=== PATIENT | female | born 1955 | race Caucasian/White ===

== ENCOUNTER 2020-07-14 09:27 | Outpatient (REF) | payer MEDICARE, SELFPAY ==
[2020-07-14 12:01] LABS: Alanine Aminotransferase 14 U/L (0-31); Aspartate Amino Transferase 16 U/L (5-31); Cholesterol 221 mg/dL; HDL Cholesterol 59 mg/dL; LDL Cholesterol Calculated 145 mg/dl; Triglycerides 85 mg/dL
== END 2020-07-14 09:28 | disposition home or self-care (01) ==
LOC: HO.HMGCLDS 09:27
PROVIDERS: PCP Internal Medicine; Visit Provider Internal Medicine
DX: E78.5 Hyperlipidemia, unspecified (principal); E55.9 Vitamin D deficiency, unspecified
CPT/HCPCS: 36415; 80061; 82306; 84450; 84460

== ENCOUNTER 2021-04-15 07:51 | Outpatient (REF) | payer MEDICARE, SELFPAY ==
[2021-04-17 14:17] LABS: Lyme Abs Screen <0.90 index
[2021-04-20 05:11] LABS: A. Phagocytophilum Ab IgG <1:64 (<1:64); A. Phagocytophilum Ab IgM <1:20 (<1:20); E. Chaffeensis Ab IgG <1:64 (<1:64); E. Chaffeensis Ab IgM <1:20 (<1:20)
== END 2021-04-15 07:52 | disposition home or self-care (01) ==
LOC: HO.HMGCLDS 07:51
PROVIDERS: PCP Internal Medicine; Visit Provider Internal Medicine
DX: R21 Rash and other nonspecific skin eruption (principal); R53.81 Other malaise; R53.83 Other fatigue
CPT/HCPCS: 36415; 86617; 86618; 86666

== ENCOUNTER 2021-05-29 08:35 | Outpatient (REF) | payer MEDICARE, SELFPAY ==
[2021-05-29 12:17] LABS: Alanine Aminotransferase 15 U/L (0-31); Anion Gap 13 (12-20); Aspartate Amino Transferase 16 U/L (5-31); Blood Urea Nitrogen 14 mg/dL (9-16); Calcium 9.4 mg/dL (8.4-10.2); Carbon Dioxide 28 mmol/L (22-29); Chloride 107 mmol/L (96-108); Cholesterol 247 mg/dL; Estimated Glomerular Filt Rate > 60; Glucose Fasting 91 mg/dL (60-99); HDL Cholesterol 54 mg/dL; LDL Cholesterol Calculated 166 mg/dl; Potassium 4.8 mmol/L (3.3-5.1); Sodium 143 mmol/L (135-145); Triglycerides 139 mg/dL
[2021-05-29 12:25] LABS: Vitamin D 25-OH Total 18.3 ng/mL (>30)
== END 2021-05-29 08:36 | disposition home or self-care (01) ==
LOC: HO.HMGCLDS 08:35
PROVIDERS: PCP Internal Medicine; Visit Provider Internal Medicine
DX: I10 Essential (primary) hypertension (principal); E78.5 Hyperlipidemia, unspecified
CPT/HCPCS: 36415; 80048; 80061; 82306; 84450; 84460

== ENCOUNTER 2021-08-25 07:13 | Outpatient (REF) | payer MEDICARE, SELFPAY ==
[2021-08-25 11:57] LABS: Alanine Aminotransferase 12 U/L (0-31); Aspartate Amino Transferase 16 U/L (5-31); Cholesterol 243 mg/dL; HDL Cholesterol 55 mg/dL; LDL Cholesterol Calculated 171 mg/dl; Triglycerides 89 mg/dL
[2021-08-25 12:03] LABS: Vitamin D 25-OH Total 37.8 ng/mL (>30)
== END 2021-08-25 07:14 | disposition home or self-care (01) ==
LOC: HO.HMGCLDS 07:13
PROVIDERS: Visit Provider Internal Medicine
DX: E55.9 Vitamin D deficiency, unspecified (principal); E78.5 Hyperlipidemia, unspecified
CPT/HCPCS: 36415; 80061; 82306; 84450; 84460

== ENCOUNTER 2022-04-03 14:47 | Outpatient (REF) | payer OTHER, MEDICARE, SELFPAY ==
--- NOTE | ~2022-04-03 | XR_ITS ---
EXAMINATION: CERVICAL SPINE. LUMBAR SPINE. CLINICAL INFORMATION: Pain. Pain COMPARISON: None TECHNIQUE: 2 views cervical spine. 2 views lumbar spine. FINDINGS: Cervical spine: Prevertebral soft tissues are normal. There is advanced disc space narrowing C5-C6 and C6-C7 but no alignment abnormality or fracture. There is calcification in the right and left common carotid arteries. 2 views of the lumbar spine show very mild forward subluxation L4 upon L5 but no fracture or destructive process. The SI joints do appear symmetric. XR/XR lumbar spine 2-3V IMPRESSION: Chronic changes observed. No acute abnormalities.
--- NOTE | ~2022-04-03 | XR_ITS ---
EXAMINATION: CERVICAL SPINE. LUMBAR SPINE. CLINICAL INFORMATION: Pain. Pain COMPARISON: None TECHNIQUE: 2 views cervical spine. 2 views lumbar spine. FINDINGS: Cervical spine: Prevertebral soft tissues are normal. There is advanced disc space narrowing C5-C6 and C6-C7 but no alignment abnormality or fracture. There is calcification in the right and left common carotid arteries. 2 views of the lumbar spine show very mild forward subluxation L4 upon L5 but no fracture or destructive process. The SI joints do appear symmetric. XR/XR cervical spine 3V IMPRESSION: Chronic changes observed. No acute abnormalities.
== END 2022-04-03 14:48 | disposition home or self-care (01) ==
LOC: HO.HMGCX 14:47
PROVIDERS: PCP Internal Medicine; Visit Provider Internal Medicine
DX: S13.4XXA Sprain of ligaments of cervical spine, initial encounter (principal); M54.50 Low back pain, unspecified; X58.XXXA Exposure to other specified factors, initial encounter; Y93.9 Activity, unspecified; Y92.9 Unspecified place or not applicable; Y99.9 Unspecified external cause status; Z87.828 Personal history of other (healed) physical injury and trauma
CPT/HCPCS: 72040; 72100

== ENCOUNTER 2022-05-11 08:00 | Outpatient (RCR) | payer OTHER, MEDICARE, SELFPAY ==
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
== END 2022-05-14 12:39 | disposition home or self-care (01) ==
LOC: HO.PTCHIC 08:00
PROVIDERS: PCP Internal Medicine; Visit Provider Internal Medicine
DX: M54.50 Low back pain, unspecified (principal); S13.4XXA Sprain of ligaments of cervical spine, initial encounter; Z87.828 Personal history of other (healed) physical injury and trauma
CPT/HCPCS: 97110; 97140; 97162

== ENCOUNTER 2022-07-16 09:00 | Outpatient (RCR) | payer OTHER, MEDICARE, SELFPAY ==
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
--- NOTE | 2022-07-16 10:01 | MHC.PT.DC ---
[facility] [place] Office [place] Office [place] Office [address] [place] [address] [phone] F: [phone] F: [phone] F: [phone] F: [phone] Physical Therapy Discharge Report Diagnosis: angel of ligaments cervical spine pain R knee Date of Surgery: Date of Evaluation: 05/14/22 Date of Discharge: 07/16/22 Treatments to Date: 14 Cancellations to Date: 0 No Shows to Date: 0 Discharge Status: Achieved Goals Improved Function Independent with HEP Discharge Summary: Pt has met all goals and is I with HEP. We reviewed importance of pacing and continuing to gradually add activity/ resistance to tolerance and not all at once. Pt reports good understanding and feels better overall with occasional aches and pain mostly in B knees lately. Continues to benefit from cues to decrease pace of exercises and move with intention. No further questions at this time. Electronically signed by: Kay Tolbert PT Please sign and return to therapist. Thank you for your referral.
== END 2022-07-16 10:02 | disposition home or self-care (01) ==
LOC: HO.PTCHIC 09:00
PROVIDERS: PCP Internal Medicine; Visit Provider Internal Medicine
DX: M25.561 Pain in right knee (principal); S13.4XXD Sprain of ligaments of cervical spine, subsequent encounter
CPT/HCPCS: 97110; 97140; 97162; 97530

== ENCOUNTER 2022-07-20 08:24 | Outpatient (REF) | payer MEDICARE, SELFPAY ==
[2022-07-20 13:22] LABS: Alanine Aminotransferase 15 U/L (0-31); Aspartate Amino Transferase 16 U/L (5-31); Cholesterol 243 mg/dL; Glucose Fasting 95 mg/dL (60-99); HDL Cholesterol 61 mg/dL; LDL Cholesterol Calculated 167 mg/dl; Triglycerides 75 mg/dL
== END 2022-07-20 08:25 | disposition home or self-care (01) ==
LOC: HO.HMGCLDS 08:24
PROVIDERS: Visit Provider Internal Medicine
DX: E78.5 Hyperlipidemia, unspecified (principal); R73.01 Impaired fasting glucose
CPT/HCPCS: 36415; 80061; 82947; 84450; 84460

== ENCOUNTER 2023-01-11 06:54 | Outpatient (REF) | payer MEDICARE, SELFPAY ==
[2023-01-11 11:52] LABS: Appearance Urine Cloudy; Color Urine Orange; Glucose Urine UA 100 mg/dL (Negative); Leukocyte Esterase Urine Small (1+) (Negative); UMIC TRIGGER UACC YES; Urine Blood Trace (Negative); Urine Ketones Negative (Negative); Urine Protein 30 (1+) mg/dL (Neg-Trace)
[2023-01-11 11:56] LABS: Bacteria Urine 4+ (None Seen); Hyaline Casts Urine 0-2 /LPF (0-2); WBC Urine >50 /HPF (0-5)
[2023-01-11 12:09] LABS: UACC Culture Trigger YES
== END 2023-01-11 06:55 | disposition home or self-care (01) ==
LOC: HO.HMGCLDS 06:54
PROVIDERS: PCP Internal Medicine; Visit Provider Internal Medicine
DX: R30.0 Dysuria (principal)
CPT/HCPCS: 81001; 87086; 87088; 87186

== ENCOUNTER 2023-02-07 07:12 | Outpatient (REF) | payer MEDICARE, SELFPAY ==
[2023-02-07 11:32] LABS: Anion Gap 13 (12-20); Blood Urea Nitrogen 15 mg/dL (9-16); Carbon Dioxide 27 mmol/L (22-29); Chloride 107 mmol/L (96-108); Cholesterol 199 mg/dL (<200); Estimated Glomerular Filt Rate > 60; Glucose Fasting 114 mg/dL (60-99); HDL Cholesterol 57 mg/dL (>40); LDL Cholesterol Calculated 128 mg/dL (<100); Potassium 4.6 mmol/L (3.3-5.1); Sodium 142 mmol/L (135-145); Triglycerides 70 mg/dL (<150)
== END 2023-02-07 07:13 | disposition home or self-care (01) ==
LOC: HO.HMGCLDS 07:12
PROVIDERS: PCP Internal Medicine; Visit Provider Internal Medicine
DX: I10 Essential (primary) hypertension (principal); E78.5 Hyperlipidemia, unspecified
CPT/HCPCS: 36415; 80048; 80061

== ENCOUNTER 2023-02-08 10:45 | Outpatient (AMB) | payer MEDICARE, SELFPAY ==
[2023-02-08 11:25] VITALS: BP 120/78; PULSE 74; O2SAT 97; BMI 28.7
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
== END 2023-02-08 14:09 | disposition home or self-care (01) ==
PROVIDERS: Visit Provider Internal Medicine
DX: Z00.01 Encounter for general adult medical examination with abnormal findings (principal); I10 Essential (primary) hypertension; R73.01 Impaired fasting glucose; Z28.21 Immunization not carried out because of patient refusal; M85.852 Other specified disorders of bone density and structure, left thigh; J30.89 Other allergic rhinitis
CPT/HCPCS: 99397

== ENCOUNTER 2023-08-07 08:33 | Outpatient (AMB) | payer MEDICARE, SELFPAY ==
[2023-08-07 08:40] VITALS: BP 128/70; PULSE 60; TEMP 36.6; O2SAT 98; BMI 28.7
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
== END 2023-08-07 09:25 | disposition home or self-care (01) ==
PROVIDERS: PCP Internal Medicine; Visit Provider Internal Medicine
DX: J06.9 Acute upper respiratory infection, unspecified (principal)
CPT/HCPCS: 99213

== ENCOUNTER 2023-08-30 11:22 | Outpatient (AMB) | payer MEDICARE, SELFPAY ==
[2023-08-30 11:35] VITALS: BP 120/70; PULSE 95; O2SAT 96; BMI 29.3
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
== END 2023-08-30 13:49 | disposition home or self-care (01) ==
PROVIDERS: PCP Internal Medicine; Visit Provider Internal Medicine
DX: J30.89 Other allergic rhinitis (principal)
CPT/HCPCS: 99213

== ENCOUNTER 2023-12-04 09:57 | Outpatient (AMB) | payer MEDICARE, SELFPAY ==
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
[2023-12-04 09:59] VITALS: BP 118/76; PULSE 75; TEMP 36.7; O2SAT 98; BMI 29.3
== END 2023-12-04 12:08 | disposition home or self-care (01) ==
PROVIDERS: PCP Internal Medicine; Visit Provider Physician Assistant
DX: H66.92 Otitis media, unspecified, left ear (principal)
CPT/HCPCS: 99213

== ENCOUNTER 2023-12-12 15:13 | Outpatient (AMB) | payer MEDICARE, SELFPAY ==
[2023-12-12 15:20] VITALS: BP 122/76; PULSE 90; TEMP 37.2; O2SAT 97; BMI 28.9
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
== END 2023-12-12 16:35 | disposition home or self-care (01) ==
PROVIDERS: PCP Internal Medicine; Visit Provider Physician Assistant
DX: H66.003 Acute suppurative otitis media without spontaneous rupture of ear drum, bilateral (principal)
CPT/HCPCS: 99213

== ENCOUNTER 2024-01-07 09:51 | Outpatient (REF) | payer MEDICARE, SELFPAY ==
[2024-01-07 13:25] LABS: Appearance Urine Clear; Color Urine Orange; Glucose Urine UA 250 mg/dL (Negative); Leukocyte Esterase Urine Small (1+) (Negative); PH 6.5 (5.0-9.0); Specific Gravity - Urine 1.015 (1.005-1.025); UMIC TRIGGER UACC YES; Urine Blood Negative (Negative); Urine Ketones Trace mg/dL (Negative)
[2024-01-07 13:38] LABS: Bacteria Urine None Seen (None Seen); Hyaline Casts Urine 0-2 /LPF (0-2); RBC Urine 0-2 /HPF (0-2); Squamous Epithelial Cell Urine 0-2 /HPF (0-2); WBC Urine 0-5 /HPF (0-5)
== END 2024-01-07 09:52 | disposition home or self-care (01) ==
LOC: HO.HMGCLDS 09:51
PROVIDERS: PCP Internal Medicine; Visit Provider Internal Medicine
DX: R30.0 Dysuria (principal)
CPT/HCPCS: 81001

== ENCOUNTER 2024-01-11 09:14 | Outpatient (AMB) | payer MEDICARE, SELFPAY ==
[2024-01-11 09:29] VITALS: BP 138/78; PULSE 76; TEMP 36.9; O2SAT 97; BMI 29.3
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
== END 2024-01-11 10:42 | disposition home or self-care (01) ==
PROVIDERS: PCP Internal Medicine; Visit Provider Nurse Practitioner Family
DX: R35.0 Frequency of micturition (principal); R39.9 Unspecified symptoms and signs involving the genitourinary system; H69.93 Unspecified Eustachian tube disorder, bilateral; R09.89 Other specified symptoms and signs involving the circulatory and respiratory systems; Z13.9 Encounter for screening, unspecified
CPT/HCPCS: 81003; 99214

== ENCOUNTER 2024-01-14 09:03 | Outpatient (REF) | payer MEDICARE, SELFPAY ==
[2024-01-14 10:35] LABS: Estimated Average Glucose 123 mg/dL; Hemoglobin A1c % 5.9 % (<6.0)
== END 2024-01-14 09:04 | disposition home or self-care (01) ==
LOC: HO.HMGCLDS 09:03
PROVIDERS: PCP Internal Medicine; Visit Provider Internal Medicine
DX: R73.01 Impaired fasting glucose (principal); R81 Glycosuria
CPT/HCPCS: 36415; 83036

== ENCOUNTER 2024-03-27 08:02 | Outpatient (REF) | payer MEDICARE, SELFPAY | END 2024-03-27 08:03 | disposition home or self-care (01) | LOC: HO.LAB 08:02 | PROVIDERS: PCP Internal Medicine; Visit Provider Physician Assistant | DX: R39.9 Unspecified symptoms and signs involving the genitourinary system (principal) | CPT/HCPCS: 81003; 87086; 99212 ==

== ENCOUNTER 2024-03-27 08:02 | Outpatient (AMB) | payer MEDICARE, SELFPAY ==
[2024-03-27 08:08] VITALS: BP 130/80; PULSE 62; TEMP 36.5; O2SAT 98
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
== END 2024-03-27 10:06 | disposition home or self-care (01) ==
PROVIDERS: PCP Internal Medicine; Visit Provider Physician Assistant
DX: Z13.9 Encounter for screening, unspecified (principal); R39.9 Unspecified symptoms and signs involving the genitourinary system

== ENCOUNTER 2024-04-16 11:11 | Outpatient (REF) | payer MEDICARE, SELFPAY | END 2024-04-16 11:12 | disposition home or self-care (01) | LOC: HO.LAB 11:11 | PROVIDERS: PCP Internal Medicine; Visit Provider Physician Assistant | DX: N39.0 Urinary tract infection, site not specified (principal) | CPT/HCPCS: 81003; 87086; 99212 ==

== ENCOUNTER 2024-04-16 11:11 | Outpatient (AMB) | payer MEDICARE, SELFPAY ==
[2024-04-16 11:16] VITALS: BP 110/76; PULSE 70; TEMP 36.5; O2SAT 97; BMI 29.0
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
== END 2024-04-16 12:11 | disposition home or self-care (01) ==
PROVIDERS: PCP Internal Medicine; Visit Provider Physician Assistant
DX: N30.00 Acute cystitis without hematuria (principal); Z13.9 Encounter for screening, unspecified

== ENCOUNTER 2024-06-15 09:25 | Outpatient (REF) | payer MEDICARE, SELFPAY ==
--- OUTSIDE RECORDS SUMMARY | 2024-06-15 10:05 | XMS_ITS | Clinical Summary ---
Author Organization [facility] ity Address [address] [place] [address] Care Team Providers Care Wood Cabinet Finisher Name Role Phone Guevara Mei MD Primary Care Provider [phone] Surgical History Surgery Date Site/Laterality Comments EYE SURGERY PROCEDURE: HISTORICAL EYE SURGERY; COMMENT: Detached retina repair HEMORRHOID SURGERY PROCEDURE: [place] INCISION THROMBOSED HEMORRHOID EXTERNAL Medical History Medical History Date Comments Esophageal reflux DX:Esophageal reflux Dyslipidemia DX:Dyslipidemia Osteopenia DX:Osteopenia Osteoarthritis of hand DX:Osteoa rthritis of hand Social History Tobacco Use Types Packs/Day Years Used Date Smoking Tobacco: Never Smokeless Tobacco: Never Alcohol Use Standard Drinks/Week Comments Never 0 (1 standard drink = 0.6 oz pur e alcohol) Comments Unknown Sex and Gender Information Value Date Recorded Sex Assigned at Not on file Legal Sex Female 6:13 AM EST Gender Identity Not on file Sexual Orientation Not on file Obstetrics History Plan of Treatment Health Maintenance Due Date Last Done Comments DTaP,Tdap,and Td Vaccines (1 - Tdap) 1960 Pneumococcal Vaccine: 50+ Ye ars (1 of 1 - PCV) 2003 Zoster Vaccines (1 of 2) 2003 Breast Cancer Screening 02/06/2020 02/05/2018 Colorectal Cancer Screening: Colonoscopy 04/08/2022 Depression Screening 04/08/2022 Falls Risk Assessment 04/08/2022 Hepatitis C Screening 04/08/2022 Osteoporosis Screening (Bone Density Screening) 04/08/2022 Social Influencers of Health Screening 04/08/2022 COVID-19 Vaccine ( - 2023-2 5 season) 2024 Influenza Vaccine (#1) 2024 RSV Immunization Patients 60 + Years Old (1 - 1-dose 75+ series) 2028 HIB Vaccines Aged Out No longer eligi ble based on patient's age to complete this topic HPV Vaccines Aged Out No longer eligi ble based on patient's age to complete this topic Hepatitis A Vaccines Aged Out No long er eligible based on patient's age to complete this topic Hepatitis B Vaccines Aged Out No long er eligible based on patient's age to complete this topic IPV Vaccines Aged Out No longer eligi ble based on patient's age to complete this topic MMR Vaccines Aged Out No longer eligi ble based on patient's age to complete this topic Meningococcal ACWY Vaccine Aged Out N o longer eligible based on patient's age to complete this topic Meningococcal B Vacine Aged Out No lo nger eligible based on patient's age to complete this topic RSV Immunization Patients Un yudith 20 months Aged Out No longer eligible b ased on patient's age to complete this topic Varicella Vaccines Aged Out No longer eligible based on patient's age to complete this topic Procedures Procedure Name Priority Date/Time Associated Diagnosis Comments [facility] SCREENING DIGITAL Routine 02/05/2018 12:50 PM EDT Encounter for screening mammogram for malignant neoplasm of breast from Last 3 Months or Most Recently Relevant to Health Maintenance Results * [facility] SCREENING DIGITAL (02/05/2018 12:50 PM EDT) Anatomical Region Laterality Modality Mammography 02/05/2018 8:18 AM EDT Narrative 02/05/2018 12:50 PM EDT [facility] Diagnostic Imaging Department [address] [place], [place] [id number] Patient: ??LETITIA CHOU ?/Age/Sex: 1955 - 62 - F Unit#: ??[id number] ? Location/Status: ??SPDIMAM/REG CLI ? [facility] Ordering Physician: ??GUEVARA MEI MD Yesy Screening Digital - 02/05/18 - 0853 INDICATION: Screening.Maternal aunt had breast carcinoma age 50. COMPARISON: Prior mammograms dating back to 2007 including outside studies TECHNIQUE: Routine views of both breasts were obtained using full-field direct digital mammography. Bilateral tomosynthesis was performed in MLO projection. Computer Aided Detection was utilized. BREAST PARENCHYMAL COMPOSITION: The breast parenchyma is composed of scattered fibroglandular densities. (Category b density ) . FINDINGS: ??There is no suspicious finding within either breast. Benign- appearing calcifications including vascular calcifications in both breasts. Stable appearance of asymmetry in the posterior third of the medial aspect of the right breast and in the mid third of the left breast. IMPRESSION: 1. No mammographic evidence of malignancy. 2. Annual screening mammography is recommended . OVERALL FINAL ASSESSMENT: BI-RADS Assessment Category 2: Benign. RI CPT II 3342 F A negative mammogram in the presence of clinically suspicious palpable abnormality does not preclude the possibility of malignancy or alter the indications for biopsy. Note: Patient information entered into a reminder system with a target due date for the next mammogram: ??CPT II 7025F G0202/09769 +[id number] Dictating Physician: ??GENET POPE MD Electronically Signed by: ??GENET POPE MD Dic Date/Time: ??02/05/18 1246 Sign date/Time: ??02/05/18 1250 Procedure Note Genet Pope MD - 04/24/2022 [facility] Diagnostic Imaging Department [address] [place] [address] Patient: LETITIA CHOU /Age/Sex: 1955 - 62- F Unit#: [id number] Location/Status: SPDIMAM/REG CLI Mnemonic/Ordering Site: [facility] Ordering Physician: GUEVARA MEI MD Yesy Screening Digital - 02/05/18852 INDICATION: Screening.Maternal aunt had breast carcinoma age 50. COMPARISON: Prior mammograms dating back to 2007 including outsidestudies TECHNIQUE: Routine views of both breasts were obtained using full-fielddirect digital mammography. Bilateral tomosynthesis was performed in MLOprojection. Computer Aided Detection was utilized. BREAST PARENCHYMAL COMPOSITION: The breast parenchyma is composed ofscattered fibroglandular densities. (Category b density ) . FINDINGS: There is no suspicious finding within either breast. Benign- appearing calcifications including vascular calcifications in bothbreasts. Stable appearance of asymmetry in the posterior third of the medial aspectof the right breast and in the mid third of the left breast. IMPRESSION: 1. No mammographic evidence of malignancy. 2. Annual screening mammography is recommended . OVERALL FINAL ASSESSMENT: BI-RADS Assessment Category 2: Benign. PQRI CPT II 3342 F A negative mammogram in the presence of clinically suspicious palpable abnormality does not preclude the possibility of malignancy or alter the indications for biopsy. Note: Patient information entered into a reminder system with a target duedate for the next mammogram: CPT II 7025F G0202/70211 +[id number] Dictating Physician: GENET POPE MD Electronically Signed by: GENET POPE MD Dic Date/Time: 02/05/18 1246 Sign date/Time: 02/05/18 1250 us Guevara Mei MD IMG BI PROCEDURES Final Res ult from Last 3 Months or Most Recently Relevant to Health Maintenance Care Teams Wood Cabinet Finisher Relationship Specialty Start Date End Date Guevara Mei MD [address] [place] [address] PCP - General Internal Medicine 09/24/12
[2024-06-15 13:27] LABS: Hematocrit 39.4 % (37.0-47.0); Hemoglobin 12.8 g/dl (12.0-16.0)
[2024-06-15 13:38] LABS: Estimated Average Glucose 114 mg/dL; Hemoglobin A1C 126.1651 umol/L; Hemoglobin A1c % 5.6 % (<6.0); Total Hemoglobin (HGBA1C) 3339.1923 umol/L
[2024-06-15 13:39] LABS: Alanine Aminotransferase 13 U/L (0-31); Anion Gap 12 (12-20); Aspartate Amino Transferase 25 U/L (5-31); Blood Urea Nitrogen 20 mg/dL (9-16); Calcium 9.2 mg/dL (8.4-10.2); Carbon Dioxide 27 mmol/L (22-29); Chloride 109 mmol/L (96-108); Cholesterol 213 mg/dL (<200); Estimated Glomerular Filt Rate > 60; Glucose Fasting 95 mg/dL (60-99); HDL Cholesterol 61 mg/dL (>40); LDL Cholesterol Calculated 139 mg/dL (<100); Potassium 4.5 mmol/L (3.3-5.1); Sodium 143 mmol/L (135-145); Triglycerides 65 mg/dL (<150)
[2024-06-15 13:54] LABS: Vitamin D 25-OH Total 51.6 ng/mL (>30)
== END 2024-06-15 09:26 | disposition home or self-care (01) ==
LOC: HO.HMGCLDS 09:25
PROVIDERS: PCP Internal Medicine; Visit Provider Internal Medicine
DX: I10 Essential (primary) hypertension (principal); E55.9 Vitamin D deficiency, unspecified; R73.01 Impaired fasting glucose; M85.852 Other specified disorders of bone density and structure, left thigh; E78.5 Hyperlipidemia, unspecified; K21.9 Gastro-esophageal reflux disease without esophagitis
CPT/HCPCS: 36415; 80048; 80061; 82306; 83036; 84450; 84460; 85014; 85018

== ENCOUNTER 2024-06-17 08:34 | Outpatient (AMB) | payer MEDICARE, SELFPAY ==
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
[2024-06-17 09:11] VITALS: BP 122/80; PULSE 68; RESP 14; TEMP 36.7; O2SAT 96; BMI 29.3
--- OUTSIDE RECORDS SUMMARY | 2024-06-17 09:18 | XMS_ITS | Clinical Summary ---
Author Organization [facility] ity Address [address] [place] [address] Care Team Providers Care Marine Electrician Name Role Phone Guevara Mei MD Primary Care Provider [phone] Surgical History Surgery Date Site/Laterality Comments EYE SURGERY PROCEDURE: HISTORICAL EYE SURGERY; COMMENT: Detached retina repair HEMORRHOID SURGERY PROCEDURE: [place] INCISION THROMBOSED HEMORRHOID EXTERNAL Medical History Medical [...] Comments DTaP,Tdap,and Td Vaccines (1 - Tdap) 1972 Pneumococcal Vaccine: 50+ Ye ars (1 of [...] Procedure Name Priority Date/Time Associated Diagnosis Comments [facility] SCREENING DIGITAL Routine 02/05/2018 12:50 PM EDT Encounter for screening mammogram for malignant neoplasm of breast from Last 3 Months or Most Recently Relevant to Health Maintenance Results * [facility] SCREENING DIGITAL (02/05/2018 12:50 PM EDT) Anatomical Region Laterality Modality Mammography 02/05/2018 8:18 AM EDT Narrative 02/05/2018 12:50 PM EDT [facility] Diagnostic Imaging Department [address] [place], [place] [id number] Patient: ??LETITIA CHOU ?/Age/Sex: 1955 - 62 - F Unit#: ??[id number] ? Location/Status: ??SPDIMAM/REG CLI ? [facility] Ordering Physician: ??GUEVARA MEI MD Yesy Screening [...] for the next mammogram: ??CPT II 7025F G0202/[id number] +[id number] Dictating Physician: ??GENET POPE MD Electronically Signed by: ??GENET POPE MD Dic Date/Time: ??02/05/18 1246 Sign date/Time: ??02/05/18 1250 Procedure Note Genet Pope MD - 04/24/2022 [facility] Diagnostic Imaging Department [address] [place] [address] Patient: LETITIA CHOU /Age/Sex: 1955 - 62- F Unit#: [id number] Location/Status: SPDIMAM/REG CLI Mnemonic/Ordering Site: [facility] Ordering Physician: GUEVARA MEI MD [...] for the next mammogram: CPT II 7025F [id number] +[id number] Dictating Physician: GENET POPE MD Electronically Signed by: GENET POPE MD Dic Date/Time: 02/05/18 1246 Sign date/Time: 02/05/18 1250 us Guevara Mei MD IMG BI PROCEDURES Final Res ult from Last 3 Months or Most Recently Relevant to Health Maintenance Care Teams Marine Electrician Relationship Specialty Start Date End Date Guevara Mei MD [address] [place] [address] PCP - General Internal Medicine 09/24/12
== END 2024-06-17 09:58 | disposition home or self-care (01) ==
PROVIDERS: PCP Internal Medicine; Visit Provider Internal Medicine
DX: Z00.01 Encounter for general adult medical examination with abnormal findings (principal); J30.89 Other allergic rhinitis; Z28.21 Immunization not carried out because of patient refusal; Z53.20 Procedure and treatment not carried out because of patient's decision for unspecified reasons; E78.5 Hyperlipidemia, unspecified; M85.89 Other specified disorders of bone density and structure, multiple sites

== ENCOUNTER → 2024-06-17 08:34 | Outpatient (BNVA) | payer MEDICARE, SELFPAY | PROVIDERS: PCP Internal Medicine; Visit Provider Internal Medicine | DX: Z00.01 Encounter for general adult medical examination with abnormal findings (principal); J30.89 Other allergic rhinitis; E78.5 Hyperlipidemia, unspecified; M85.89 Other specified disorders of bone density and structure, multiple sites | CPT/HCPCS: 96127; 99397 ==

== ENCOUNTER 2024-09-15 10:47 | Outpatient (AMB) | payer MEDICARE, SELFPAY ==
[2024-09-15 10:55] VITALS: BP 136/78; PULSE 78; TEMP 36.7; O2SAT 97; BMI 29.3
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
--- OUTSIDE RECORDS SUMMARY | 2024-09-15 12:11 | XMS_ITS | Clinical Summary ---
Author Organization [facility] ity Address [address] [place] [address] Care Team Providers Care Continuous Yarn Dyeing Machine Operator Name Role Phone Guevara Mei MD Primary Care Provider Surgical History Surgery Date Site/Laterality Comments EYE SURGERY PROCEDURE: HISTORICAL EYE SURGERY; COMMENT: Detached retina repair HEMORRHOID SURGERY PROCEDURE: [place] INCISION THROMBOSED HEMORRHOID EXTERNAL Medical History Medical [...] - 2023-2 5 season) 2024 Influenza Vaccine (Season Ended) 2025 RSV Immunization Adult Patie nts (1 - 1-dose 75+ series) 2028 HIB [...] age to complete this topic Meningococcal B Vaccine Aged Out No l onger eligible based on patient's age to complete this topic RSV Immunization Patients Un yudith 20 months Aged Out No longer eligible b ased on patient's age to complete this topic Varicella Vaccines Aged Out No longer eligible based on patient's age to complete this topic Procedures Procedure Name Priority Date/Time Associated Diagnosis Comments [facility] SCREENING DIGITAL Routine 02/05/2018 12:50 PM EDT Encounter for screening mammogram for malignant neoplasm of breast from Last 3 Months or Most Recently Relevant to Health Maintenance Results * [facility] SCREENING DIGITAL (02/05/2018 12:50 PM EDT) Anatomical Region Laterality Modality Mammography 02/05/2018 8:18 AM EDT Narrative 02/05/2018 12:50 PM EDT [facility] Diagnostic Imaging Department [address] [place], [place] [id number] Patient: ??LETITIA CHOU ?/Age/Sex: 1955 - 62 - F Unit#: ??[id number] ? Location/Status: ??SPDIMAM/REG CLI ? Mnemonic/Ordering Site: ??DIGSC/SPMAM Ordering Physician: ??GUEVARA MEI MD Yesy Screening [...] for the next mammogram: ??CPT II 7025F [id number] Dictating Physician: ??GENET POPE MD Electronically Signed by: ??GENET POPE MD Dic Date/Time: ??02/05/18 1246 Sign date/Time: ??02/05/18 1250 Procedure Note Genet Pope MD - 04/24/2022 [facility] Diagnostic Imaging Department [address] [place] [address] Patient: LETITIA CHOU /Age/Sex: 1955 - 62- F Unit#: [id number] Location/Status: SPDIMAM/REG CLI Mnemonic/Ordering Site: [facility] Ordering Physician: GUEVARA MEI MD Yesy Screening [...] for the next mammogram: CPT II 7025F [id number] Dictating Physician: GENET POPE MD Electronically Signed by: GENET POPE MD Date/Time: 02/05/18 1246 Sign date/Time: 02/05/18 1250 us Guevaar Mei MD IMG BI PROCEDURES Final Res ult from Last 3 Months or Most Recently Relevant to Health Maintenance Care Teams Continuous Yarn Dyeing Machine Operator Relationship Specialty Start Date End Date Guevara Mei MD [address] [place] [address] PCP - General Internal Medicine 09/24/12
== END 2024-09-15 14:23 | disposition home or self-care (01) ==
PROVIDERS: PCP Internal Medicine; Visit Provider Physician Assistant
DX: N30.00 Acute cystitis without hematuria (principal)

== ENCOUNTER → 2024-09-15 10:47 | Outpatient (BNVA) | payer MEDICARE, SELFPAY | PROVIDERS: PCP Internal Medicine; Visit Provider Physician Assistant | DX: N30.00 Acute cystitis without hematuria (principal) | CPT/HCPCS: 99212 ==

== ENCOUNTER 2024-11-27 11:39 | Outpatient (AMB) | payer MEDICARE, SELFPAY ==
[2024-11-27 11:49] VITALS: BP 110/60; PULSE 76; TEMP 36.8; O2SAT 96; BMI 28.3
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
== END 2024-11-27 12:15 | disposition home or self-care (01) ==
PROVIDERS: PCP Internal Medicine; Visit Provider Physician Assistant
DX: J01.00 Acute maxillary sinusitis, unspecified (principal)

== ENCOUNTER → 2024-11-27 11:39 | Outpatient (BNVA) | payer MEDICARE, SELFPAY | PROVIDERS: PCP Internal Medicine; Visit Provider Physician Assistant | DX: J01.00 Acute maxillary sinusitis, unspecified (principal) | CPT/HCPCS: 99212 ==

== ENCOUNTER 2024-12-09 13:47 | Outpatient (REF) | payer MEDICARE, SELFPAY ==
--- NOTE | ~2024-12-09 | XR_ITS ---
EXAMINATION: XR FOOT, LEFT CLINICAL INFORMATION: M79.672 - Pain in left foot COMPARISON: None available. TECHNIQUE: AP, lateral, and oblique views of the left foot. FINDINGS: Fracture, dislocation, or suspicious bone lesion. There is normal alignment. There is normal plantar arch. The midfoot and hindfoot appear normal. There is no soft tissue abnormality. XR/XR foot LT min 3V IMPRESSION: No acute findings of the left foot. Electronically signed by: Renzo Mcclure MD 12/09/2024 03:30 PM EDT
== END 2024-12-09 13:48 | disposition home or self-care (01) ==
LOC: HO.HMGCX 13:47
PROVIDERS: PCP Internal Medicine; Visit Provider Physician Assistant
DX: S93.492A Sprain of other ligament of left ankle, initial encounter (principal); S90.32XA Contusion of left foot, initial encounter; M79.672 Pain in left foot; M79.89 Other specified soft tissue disorders; X58.XXXA Exposure to other specified factors, initial encounter
CPT/HCPCS: 73630; 99212

== ENCOUNTER 2024-12-09 13:47 | Outpatient (AMB) | payer MEDICARE, SELFPAY ==
--- OUTSIDE RECORDS SUMMARY | 2024-12-09 14:16 | XMS_ITS | Clinical Summary ---
Author Organization [facility] ity Address [address] [place] [address] Care Team Providers Care Regional Facilities Specialist Name Role Phone Guevara Mei MD Primary Care Provider Surgical History Surgery Date Site/Laterality Comments EYE SURGERY PROCEDURE: HISTORICAL EYE SURGERY; COMMENT: Detached retina repair HEMORRHOID SURGERY PROCEDURE: [place] INCISION THROMBOSED HEMORRHOID EXTERNAL Medical History Medical [...] 02/06/2020 02/05/2018 Colorectal Cancer Screening: Colonoscopy 04/08/2022 Falls Risk Assessment 04/08/2022 Hepatitis C Screening 04/08/2022 Osteoporosis Screening (Bone Density Screening) 04/08/2022 Social Influencers of Health Screening 04/08/2022 COVID-19 Vaccine (1 - 2023-2 5 season) 2024 Depression Screening 05/06/2024 Influenza Vaccine (#1) 2025 RSV Immunization Adult Patie nts (1 [...] Procedure Name Priority Date/Time Associated Diagnosis Comments [facility] SCREENING DIGITAL Routine 02/05/2018 12:50 PM EDT Encounter for screening mammogram for malignant neoplasm of breast from Last 3 Months or Most Recently Relevant to Health Maintenance Results * [facility] SCREENING DIGITAL (02/05/2018 12:50 PM EDT) Anatomical Region Laterality Modality Mammography 02/05/2018 8:18 AM EDT Narrative 02/05/2018 12:50 PM EDT [facility] Diagnostic Imaging Department [address] [place] [address] Patient: LETITIA CHOU./Age/Sex: 1955 - 62 - F Unit#: [id number] Location/Status: [facility] CLI Mnemonic/Ordering Site: [facility] Ordering Physician: GUEVARA MEI MD Yesy Screening Digital - 02/05/18 - 3953 INDICATION: Screening.Maternal aunt had breast carcinoma age [...] target due date for the next mammogram: CPT II 7025F G0202/[id number] Dictating Physician: GENET POPE MD Electronically Signed by: GENET POPE MD Dic Date/Time: 02/05/18 1246 Sign date/Time: 02/05/18 1250 Procedure Note Genet Pope MD - 04/24/2022 [facility] Diagnostic Imaging Department [address] [place], [place] [id number] Patient: LETITIA CHOU /Age/Sex: 1955 - 62- F Unit#: [id number] Location/Status: SPDIMAM/REG CLI Mnemonic/Ordering Site: [facility] Ordering Physician: GUEVARA MEI MD Yesy Screening Digital - 02/05/18 - 852 INDICATION: Screening.Maternal aunt had breast carcinoma age [...] for the next mammogram: CPT II 7025F [id number]/[id number] +[id number] Dictating Physician: GENET POPE MD Electronically Signed by: GENET POPE MD Dic Date/Time: 02/05/18 1246 Sign date/Time: 02/05/18 1250 Guevara Mei MD IMG BI PROCEDURES Final Res ult from Last 3 Months or Most Recently Relevant to Health Maintenance Care Teams Regional Facilities Specialist Relationship Specialty Start Date End Date Guevara Mei MD [address] [facility] [place] [address] PCP - General Internal Medicine 09/24/12
[2024-12-09 14:19] VITALS: BP 147/84; PULSE 76; TEMP 36.9; O2SAT 97; BMI 29.2
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
== END 2024-12-09 15:44 | disposition home or self-care (01) ==
PROVIDERS: PCP Internal Medicine; Visit Provider Physician Assistant
DX: S99.922A Unspecified injury of left foot, initial encounter (principal); M79.672 Pain in left foot; S93.492A Sprain of other ligament of left ankle, initial encounter

== ENCOUNTER → 2024-12-09 15:01 | Outpatient (BNV) | payer MEDICARE, SELFPAY | PROVIDERS: PCP Internal Medicine; Visit Provider Radiology Diagnostic Radiology | DX: M79.672 Pain in left foot (principal) | CPT/HCPCS: 73630 ==

== ENCOUNTER 2025-01-14 15:37 | Outpatient (AMB) | payer MEDICARE, SELFPAY ==
[2025-01-14 16:07] VITALS: BP 122/64; PULSE 84; RESP 16; TEMP 36.7; O2SAT 100; BMI 29.1
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
== END 2025-01-14 16:43 | disposition home or self-care (01) ==
LOC: HO.HMCC 15:38
PROVIDERS: PCP Internal Medicine; Visit Provider Internal Medicine
DX: S93.402D Sprain of unspecified ligament of left ankle, subsequent encounter (principal)

== ENCOUNTER → 2025-01-14 15:37 | Outpatient (BNVA) | payer MEDICARE, SELFPAY | PROVIDERS: PCP Internal Medicine; Visit Provider Internal Medicine | DX: S93.402D Sprain of unspecified ligament of left ankle, subsequent encounter (principal); Z13.31 Encounter for screening for depression | CPT/HCPCS: 96127; 99212 ==